=== PATIENT | male | born 1995 ===

== ENCOUNTER 2016-11-21 07:51 | Emergency (ER) | payer OTHER ==
--- NOTE | 2016-11-21 08:46 | ED CLINICAL REPORT ---
Clinical Report - Physicians/Mid Levels Formerly [facility] [address] [place] [address] 11/21/2016 8:01 Patient: MARLENA MEJIA Time Seen: 0810. Arrived- By private vehicle. Historian- patient. HISTORY OF PRESENT ILLNESS Chief Complaint: Injury to the right thumb. The injury happened today. Occurred at work. The patient sustained a laceration. Patient is experiencing mild pain. Patient denies injury to the head or neck. No other injury. REVIEW OF SYSTEMS The patient sustained a laceration. No swelling, tingling, numbness, weakness or foreign body. All systems otherwise negative, except as recorded above. PAST HISTORY See nurses notes. Tetanus immunization status is unknown. Medications: None. Allergies: None. SOCIAL HISTORY Never smoker. No alcohol use or drug use. Is a local resident. ADDITIONAL NOTES The nursing notes have been reviewed. PHYSICAL EXAM Vital Signs: 11/21/2016 08:09 BP: 114/46. HR: 57. RR: 16. O2 saturation: 98%. Temp: 98.7 F. Blood pressure normal. Oxygen saturation normal. Appearance: Alert. Oriented X3. No acute distress. CVS: Normal heart rate and rhythm. Heart sounds normal. Pulses normal. Respiratory: No respiratory distress. Breath sounds normal. Chest nontender. Abdomen: No visible injury. Soft and nontender. Bowel sounds normal. Skin: Skin warm and dry. Skin intact. Extremities: (2.5 cm laceration to the distal right thumb. no gross contamination. bleeding controlled. no fb. full thickness. does not go into the joint space.). Neuro, Vascular and Tendons: Vascular status intact. Sensation intact. Motor intact. Tendon function intact. PROGRESS AND PROCEDURES Laceration Repair: Location: right thumb. Length: 2.5 cm. Wound depth/shape- subcutaneous. Distal neuro/vascular/tendon status normal. Anesthesia provided by digital block using 2% lidocaine. Prepped with Betadine and chlorhexidine. Wound explored, cleansed, irrigated and examined to the base in bloodless field extensively with normal saline. Closure of skin: interrupted 4-0 nylon (6 sutures). Post-procedure: he is stable and there are no complications. Bleeding is controlled and neuro-vascular status is intact distal to the wound. Clean dressing consisting of Band-Aid was applied. Following the application of antibiotic ointment. Estimated blood loss: < 2 mLs. Course of Care: the patient is a 21-year-old male presenting for a titration of laceration to the thumb. No neurovascular compromise noted on patient's examination. Patient is resting in bed and in no acute distress. Patient with full range of motion of the thumb. informedverbal consent obtained for laceration repair. Wound precaution risks provided. Discussed with patient his work appearing emergency department including diagnosis, home care, follow-up, and return precautions. Also discussed with patient in detail wound infection risk precautions. All questions have been answered. The patient expressed understanding of these instructions and was agreeable to them. Disposition: Discharged. Condition: good. CLINICAL IMPRESSION 11/21/2016 08:09 BP: 114/46. HR: 57. RR: 16. O2 saturation: 98%. Temp: 98.7 F. Blood pressure normal. Oxygen saturation normal. Single deep laceration to the right thumb with fingernail injury.No foreign body present. INSTRUCTIONS (Keep dry for 24 hours. May wash after with warm water and mild soap. Sutures come out in 10 - 14 days.). Warnings: GENERAL WARNINGS: Return or contact your physician immediately if your condition worsens or changes unexpectedly, if not improving as expected, or if other problems arise. Specifically return if pain, vomiting, bleeding, breathing difficulty or fever. OTC Medications: Acetaminophen (available over the counter): take according to label instructions. Motrin (available over the counter): take according to label instructions. Follow-up: Return to the emergency department as needed. Follow up with your doctor in three days. Reason for referral: recheck today's concerns. Summary of care provided to patient via paper. Screening today revealed the patient's blood pressure to be in the normal range. The patient should follow up with a primary care provider for blood pressure management. Understanding of the discharge instructions verbalized by patient. (Electronically signed by Yong Clemons Dr. 11/23/2016 16:37)
--- NOTE | 2016-11-21 08:46 | ED ORDER SUMMARY ---
..... Patient: MARLENA MEJIA OrderSheet [facility] VisitID: [id number] [address] [place] [address] 21y, M Registration Date/Time: 11/21/2016 ORDER SHEET Weight: 58.9 kg (stated) Allergies: None GENERAL ORDERS: MEDICATION ORDERS: Tdap IM 0.5 mL (per protocol) (08:29 11/21/2016 LSullivan R.N. per protocol) (8:30 LSullivan R.N.) IV FLUIDS: ORDER SHEET NOTES: [Electronically signed by Jeri Rosales (09:02 11/21/2016)] [Electronically signed by Yong Clemons Dr. (16:37 11/23/2016)] [Electronically locked/signed by Jeri Rosales (09:02 11/21/2016)]
--- NOTE | 2016-11-21 08:46 | ED NURSING NOTES ---
Clinical Report - Nurses [facility] [place] [address] 11/21/2016 8:01 [id number] Triage time 08:09. Acuity: LEVEL 5. Chief Complaint: INJURY TO RIGHT HAND. INJURY TO THE RIGHT THUMB. SEPSIS SCREEN: Sepsis Screen. Negative (no infection suspected/documented). --08:11 Barbara Reyes R.N. 08:09 11/21/16. BP: 114/46. HR: 57. RR: 16. O2 saturation: 98%. Temp: 98.7 F. --08:11 Barbara Reyes R.N. Weight: 58.9 kg stated. Height/Length: 66 inches Per Patient. BMI: 21. --08:10 Barbara Reyes R.N. Medications None. --09:00 Jeri Rosales. Allergies None. --09:00 Jeri Rosales. History Arrived by private vehicle. Historian: patient. Primary physician (none). This occurred just prior to arrival and today. Occurred at work. 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 PAST MEDICAL HX: Tetanus status: more than 5 years ago. Immunizations: up-to-date. SURGERY HX: Appendectomy. SOCIAL HX: Never smoker. No alcohol use or drug use. FALL RISK ASSESSMENT: Fall risk assessment completed. No fall risk identified. NUTRITIONAL RISK ASSESSMENT: The nutritional risk assessment revealed no deficiencies. FUNCTIONAL ASSESSMENT: Functional assessment: no impairments noted. --08:11 Barbara Reyes R.N. Interventions ID band on patient. To room. --08:11 Barbara Reyes R.N. PHYSICAL ASSESSMENT 08:12 11/21/16. EXTREMITIES: Tip of right thumb: laceration with bleeding. --08:12 Barbara Reyes R.N. NURSING PROGRESS NOTES 08:12 11/21/16. Patient identifiers checked. Call light placed in reach. Bed placed in lowest position. Patient ready for evaluation. --08:12 Barbara Reyes R.N. 08:25 11/21/2016 TDAP IM 0.5 mL given. (Lot#: [id number], expiration date: 10/21/2018, Paste Mixer: sanofi pasteur). Vaccine information statement provided to the patient (in Bengali). --08:30 Barbara Reyes R.N. 08:48 11/21/16. Wound cleansed with chlorhexidine. Applied dressing consisting of Band-Aid, following the application of antibiotic ointment (bacitracin). --08:58 Jeri Rosales. DISPOSITION / DISCHARGE Departure time: 08:50 Nov 21 2016. Condition at departure: improved. The goals identified in the patient's plan of care were met. No learning barriers present. Discharge instructions provided and reviewed with the patient. Reviewed warnings (Patient verbalized awareness of warning s/sx listed in dc paperwork.). Reviewed referral to a primary care physician for followup. Patient verbalized understanding. Written instructions provided in Bengali. The patient was discharged by the physician. He was discharged home and unaccompanied at time of discharge. He left the Emergency Department ambulatory and via private vehicle. Patient driving. FALL RISK ASSESSMENT: Fall risk assessment completed. No fall risk identified. --08:56 Jeri Rosales 08:50 11/21/16. BP: deferred. HR: deferred. RR: deferred. O2 saturation: deferred. Temp: deferred. Pain level now deferred. --08:56 Jeri Rosales. Locked/Released at 11/21/2016 9:02 by Jeri Rosales,
--- NOTE | 2016-11-21 08:46 | ED ORDER SUMMARY ---
..... Patient: MARLENA MEJIA OrderSheet [facility] VisitID: [id number] [address] [place] [address] 21y, M Registration Date/Time: 11/21/2016 ORDER SHEET Weight: 58.9 kg (stated) Allergies: None GENERAL ORDERS: MEDICATION ORDERS: Tdap IM 0.5 mL (per protocol) (08:29 11/21/2016 LSullivan R.N. per protocol) (8:30 LSullivan R.N.) IV FLUIDS: ORDER SHEET NOTES: [Electronically signed by Jeri Rosales (09:02 11/21/2016)] [Electronically signed by Yong Clemons Dr. (16:37 11/23/2016)] [Electronically locked/signed by Jeri Rosales (09:02 11/21/2016)]
--- NOTE | 2016-11-21 08:46 | ED NURSING NOTES ---
Clinical Report - Nurses Merg[facility] [place] [address] 11/21/2016 8:01 [id number] TRIAGE Triage time 08:09. Acuity: LEVEL 5. Chief Complaint: INJURY TO RIGHT HAND. INJURY TO THE RIGHT THUMB. SEPSIS SCREEN: Sepsis Screen. Negative (no infection suspected/documented). --08:11 Barbara Reyes R.N. 08:09 11/21/16. BP: 114/46. HR: 57. RR: 16. O2 saturation: 98%. Temp: 98.7 F. --08:11 Barbara Reyes R.N. Weight: 58.9 kg stated. Height/Length: 66 inches Per Patient. BMI: 21. --08:10 Barbara Reyes R.N. Medications None. --09:00 Jeri Rosales. Allergies None. --09:00 Jeri Rosales. History Arrived by private vehicle. Historian: patient. Primary physician (none). This occurred just prior to arrival and today. Occurred at work. 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 PAST MEDICAL HX: Tetanus status: more than 5 years ago. Immunizations: up-to-date. SURGERY HX: Appendectomy. SOCIAL HX: Never smoker. No alcohol use or drug use. FALL RISK ASSESSMENT: Fall risk assessment completed. No fall risk identified. NUTRITIONAL RISK ASSESSMENT: The nutritional risk assessment revealed no deficiencies. FUNCTIONAL ASSESSMENT: Functional assessment: no impairments noted. --08:11 Barbara Reyes R.N. Interventions ID band on patient. To room. --08:11 Barbara Reyes R.N. PHYSICAL ASSESSMENT 08:12 11/21/16. EXTREMITIES: Tip of right thumb: laceration with bleeding. --08:12 Barbara Reyes R.N. NURSING PROGRESS NOTES 08:12 11/21/16. Patient identifiers checked. Call light placed in reach. Bed placed in lowest position. Patient ready for evaluation. --08:12 Barbara Reyes R.N. 08:25 11/21/2016 TDAP IM 0.5 mL given. (Lot#: [id number], expiration date: 10/21/2018, Head Of Academic Technology: sanofi pasteur). Vaccine information statement provided to the patient (in Bulgarian). --08:30 Barbara Reyes R.N. 08:48 11/21/16. Wound cleansed with chlorhexidine. Applied dressing consisting of Band-Aid, following the application of antibiotic ointment (bacitracin). --08:58 Jeri Rosales. DISPOSITION / DISCHARGE Departure time: 08:50 Nov 21 2016. Condition at departure: improved. The goals identified in the patient's plan of care were met. No learning barriers present. Discharge instructions provided and reviewed with the patient. Reviewed warnings (Patient verbalized awareness of warning s/sx listed in dc paperwork.). Reviewed referral to a primary care physician for followup. Patient verbalized understanding. Written instructions provided in Bulgarian. The patient was discharged by the physician. He was discharged home and unaccompanied at time of discharge. He left the Emergency Department ambulatory and via private vehicle. Patient driving. FALL RISK ASSESSMENT: Fall risk assessment completed. No fall risk identified. --08:56 Jeri Rosales 08:50 11/21/16. BP: deferred. HR: deferred. RR: deferred. O2 saturation: deferred. Temp: deferred. Pain level now deferred. --08:56 Jeri Rosales. Locked/Released at 11/21/2016 9:02 by Jeri Rosales,
--- NOTE | 2016-11-23 16:37 | ED DISCHARGE INSTRUCTIONS ---
Patient: MARLENA MEJIA General Instructions [facility] VisitID: [id number] [place] [address] 21y, M Registration Date/Time: 11/21/2016 11/21/2016 08:09 BP: 114/46. HR: 57. RR: 16. O2 saturation: 98%. Temp: 98.7 F. Blood pressure normal. Oxygen saturation normal. Single deep laceration to the right thumb with fingernail injury.No foreign body present. INSTRUCTIONS (Keep dry for 24 hours. May wash after with warm water and mild soap. Sutures come out in 10 - 14 days.). Warnings: GENERAL WARNINGS: Return or contact your physician immediately if your condition worsens or changes unexpectedly, if not improving as expected, or if other problems arise. Specifically return if pain, vomiting, bleeding, breathing difficulty or fever. OTC Medications: Acetaminophen (available over the counter): take according to label instructions. Motrin (available over the counter): take according to label instructions. Follow-up: Return to the emergency department as needed. Follow up with your doctor in three days. Reason for referral: recheck today's concerns. Summary of care provided to patient via paper. Screening today revealed the patient's blood pressure to be in the normal range. The patient should follow up with a primary care provider for blood pressure management. Understanding of the discharge instructions verbalized by patient. ADDITIONAL INFORMATION Laceration (All Closures) Alaceration is a cut through the skin. This will usually require stitches (sutures) or lee if it is deep. Minor cuts may be treated with a surgical tape closure orskin glue. Home care The following guidelines will help you care for your laceration at home: Extremity, face, or trunk wounds Keep the wound clean and dry. If a bandage was applied and it becomes wet or dirty, replace it. Otherwise, leave it in place for the first 24 hours. If stitches or lee were used, clean the wound daily. After removing the bandage, wash the area with soap and water. Use a wet cotton swab to loosen and remove any blood or crust that forms. The doctor may prescribe an antibiotic cream or ointment to prevent infection. Do not stop taking this medication until you have finished the prescribed course or the doctor tells you to stop. The doctor may also prescribe medications for pain. Follow the doctors instructions for taking these medications. You may remove the bandage to shower as usual after the first 24 hours, but do not soak the area in water (no swimming) until the stitches or lee are removed. If surgical tape was used, keep the area clean and dry. If it becomes wet, blot it dry with a towel. If skin glue was used, do not scratch, rub, or pick at the adhesive film. Do not place tape directly over the film. Do not apply liquid, ointment, or creams to the wound while the film is in place. Do not clean the wound with peroxide and do not apply ointments. Avoid activities that cause heavy sweating until the film has fallen off. Protect the wound from prolonged exposure to sunlight or tanning lamps. You may shower as usual but do not soak the wound in water (no baths or swimming). The film will fall off by itself in 510 days. Scalp wounds During the first two days, you may carefully rinse your hair in the shower to remove blood, glass or dirt particles. After two days, you may shower and shampoo your hair normally. Do not soak your scalp in the tub or go swimming until the stitches or lee have been removed. Talk with your doctor before applying any antibiotic ointment to the wound. Mouth wounds Eat soft foods to reduce pain. If the cut is inside of your mouth, clean by rinsing after each meal and at bedtime with a mixture of equal parts water and hydrogen peroxide (do not swallow!). Or, you can use a cotton swab to directly apply hydrogen peroxide onto the cut. Mouth wounds can be painful when eating. You may use an [id number] local numbing solution for pain relief. If this is not available, you may use any numbing solution for teething babies. You may apply this directly to the sores with a cotton-tip swab or with your finger. Follow-up care Follow up with your health care provider. Most skin wounds heal within ten days. Mouth and facial wounds heal within five days. However, even with proper treatment, a wound infection may sometimes occur. Therefore, you should check the wound daily for signs of infection listed below. Stitches should be removed from the face within five days; stitches and lee should be removed from other parts of the body within 714 days. If dissolving stitches were used in the mouth, these will fall out or dissolve without the need for removal. If tape closures were used, remove them yourself if they have not fallen off after 7 days. Ifskin glue was used, the film will fall off by itself in 510 days. When to seek medical care Get prompt medical attention if any of these occur: Bleeding not controlled by direct pressure Signs of infection, including increasing pain in the wound, increasing wound redness or swelling, or pus coming from the wound Fever of 100.4F (38C) or higher, or as directed by your health care provider Stitches or lee come apart or fall out or surgical tape falls off before 7 days Wound edges re-open You have been given the following additional information: Laceration, All (Electronically signed by Yong Clemons Dr. 11/23/2016 16:37)
--- NOTE | 2016-11-23 16:37 | ED MAR SUMMARY ---
..... Medication Administration Record [facility] [address] [place] [address] Patient: MARLENA MEJIA Visit ID: [id number] 21y, M Weight: 58.9 kg Height/Length: 66 in BMI: 21 ALLERGIES: None Given 08:25 11/21/2016 Barbara Reyes R.N. Medication Administered: TDAP [IM], Dose: 0.5 mL IM. Medication Ordered: Tdap IM 0.5 mL (per protocol).
--- NOTE | 2016-11-23 16:37 | ED MED RECONCILIATION SUMMARY ---
Patient: MARLENA MEJIA Medication Reconciliation Report [facility] VisitID: [id number] [address] [place] [address] 21y, M Registration Date/Time: 11/21/2016 Weight: 58.9 kg Height/Length: 66 in. BMI: 21.0 ALLERGIES: None The patient's Home Medications are listed below: NONE. The source(s) of the original Home Medication information: Not obtained. The following Medications were given to the patient in the Emergency Department: TDAP [IM] IM 0.5 mL, administered: 11/21/2016 8:25:00 AM The following Medications were prescribed to the patient: Acetaminophen (available over the counter): take according to label instructions. -- Yong Clemons Dr. Motrin (available over the counter): take according to label instructions. -- Yong Clemons Dr.
--- NOTE | 2016-11-23 16:37 | ED MED RECONCILIATION SUMMARY ---
Patient: MARLENA MEJIA Medication Reconciliation Report [facility] VisitID: [id number] [address] [place] [address] 21y, M Registration Date/Time: 11/21/2016 Weight: 58.9 kg Height/Length: 66 in. BMI: 21.0 ALLERGIES: None The patient's Home Medications are listed below: NONE. The source(s) of the original Home Medication information: Not obtained. The following Medications were given to the patient in the Emergency Department: TDAP [IM] IM 0.5 mL, administered: 11/21/2016 8:25:00 AM The following Medications were prescribed to the patient: Acetaminophen (available over the counter): take according to label instructions. -- Yong Clemons Dr. Motrin (available over the counter): take according to label instructions. -- Yong Clemons Dr.
--- NOTE | 2016-11-23 16:37 | ED MAR SUMMARY ---
..... Medication Administration Record [facility] [address] [place] [address] Patient: MARLENA MEJIA Visit ID: [id number] 21y, M Weight: 58.9 kg Height/Length: 66 in BMI: 21 ALLERGIES: None Given 08:25 11/21/2016 Barbara Reyes R.N. Medication Administered: TDAP [IM], Dose: 0.5 mL IM. Medication Ordered: Tdap IM 0.5 mL (per protocol).
== END 2016-11-21 08:50 | disposition home or self-care (01) ==
LOC: ED SRH 07:51
DX: S61.111A Laceration without foreign body of right thumb with damage to nail, initial encounter (principal); W45.8XXA Other foreign body or object entering through skin, initial encounter; Y99.0 Civilian activity done for income or pay; Z23 Encounter for immunization